=== PATIENT | female | born 1965 | race Caucasian/White ===

== ENCOUNTER 2019-01-31 11:36 | Observation (INO) | payer MEDICARE, OTHER ==
[~2019-01-31] VITALS: Ht 162.6 cm; Wt 74.1 kg
[~2019-01-31 11:36] MED LIST: DIPH25CA83 PO; GUAI600T45 PO; nicotine 21mg patch - 24 hr TD ONE
[2019-01-31] MEDS ORDERED: sucralfate 1gm/10ml UD suspension PO STA (12:07)
[2019-01-31] MEDS ORDERED: mag hydrox/Alum hydrox/simeth 30ml oral suspension PO ONE (12:10)
[2019-01-31] MEDS ORDERED: LIDOcaine Viscous 15ml cup PO ONE (12:10)
[2019-01-31 12:24] LABS: BASOPHILS % (AUTO) 0.6 % (0-1); EOSINOPHILS % (AUTO) 0.6 % (0-6); HEMATOCRIT 43.3 % (35.0-45.0); HEMOGLOBIN 15.1 g/dl (12.0-16.0); LYMPHOCYTES # (AUTO) 1.9 X10'3 (1.1-4.8); LYMPHOCYTES % (AUTO) 26.1 % (21-51); MEAN CORPUSCULAR HEMOGLOBIN 30.8 PG (27.0-31.0); MEAN CORPUSCULAR VOLUME 88.1 FL (78-98); MEAN PLATELET VOLUME 8.5 FL (7.4-10.4); MONOCYTES # (AUTO) 0.4 X10'3 (0-0.9); MONOCYTES % (AUTO) 5.8 % (2-12); NEUTROPHILS # (AUTO) 4.8 X10'3 (1.8-7.7); NEUTROPHILS % (AUTO) 66.9 % (42-75); PLATELET COUNT 234 X10'3 (140-440); RED BLOOD COUNT 4.92 X10'6 (4.20-5.60); WHITE BLOOD COUNT 7.1 X10'3 (4.5-11.0)
[2019-01-31 12:30] LABS: PARTIAL THROMBOPLASTIN TIME 26 SECONDS (22-32); PROTHROMBIN TIME 9.9 SECONDS (9.0-12.0)
[2019-01-31 12:31] LABS: ALANINE AMINOTRANSFERASE 34 U/L (12-78); ALBUMIN/GLOBULIN RATIO 1.1 (1.1-1.5); ALKALINE PHOSPHATASE 98 IU/L (46-116); ANION GAP 7 (8-16); ASPARTATE AMINO TRANSFERASE 18 U/L (10-37); BILIRUBIN,TOTAL 0.4 MG/DL (0.1-1.0); BLOOD UREA NITROGEN 10 MG/DL (7-18); BUN/CREATININE RATIO 12.2 (6.6-38.0); CALCIUM 9.2 MG/DL (8.5-10.1); CHLORIDE 103 MMOL/L (99-107); CREATININE 0.82 MG/DL (0.40-0.90); GLUCOSE 128 MG/DL (70-104); POTASSIUM 3.7 MMOL/L (3.5-5.1); SODIUM 139 MMOL/L (135-145); TOTAL PROTEIN 7.5 G/DL (6.4-8.2); eGFR 73 ML/MIN
[2019-01-31] MEDS ORDERED: nitroGLYCERIN 0.4mg SUBLingual tab SL PRN ×3 (13:20→16:30)
--- NOTE | 2019-01-31 13:44 | NUR ---
UPDATED VS AND NOTIFIED DR HERNANDEZ PT HAS NO CHEST PAIN FOLLOWING NITRO.
--- NOTE | 2019-01-31 14:50 | NUR ---
DR HERNANDEZ INFORMED PT CP WENT DOWN TO 0/10 AFTER ONE SL NTG, PT REPORTS SMALL AMOUNT OF EPGASTRIC PAIN INDIGESTION AND BURNING, DR HERNANDEZ INFORMED OF PT SMOKING NICOTINE PATCH NEEDS AND ANXIETY PT USES MARIJUANA FOR ANXIETY AND HAS HX OF BIPOLAR, DR HERANNDEZ TO SPEAK WITH PT AND ORDERS TO FOLLOW.
[2019-01-31] MEDS ORDERED: nitroGLYCERIN 1gm ointment UD TP ONE (14:55)
[2019-01-31] MEDS ORDERED: LORA-269 PO (15:05)
[2019-01-31] MEDS ORDERED: NICO-687 TOP (15:05)
--- NOTE | 2019-01-31 15:26 | NUR ---
PT CONCERNED ABOUT [facility] LIC# [id number], PT WENT TO CAR TO SECURE ITEMS IN CAR AND THE CAR ITSELF, SECURITY NOTIFIED AND STATES SHOULD BE NO PROBLEM TO PARK OVERNIGHT.
[2019-01-31] MEDS ORDERED: LORazepam 1 MG tablet PO PRN ×2 (15:55→16:30)
[2019-01-31] MEDS ORDERED: magnesium 2GM in 50ml NS 50 ML IV PRN (16:25)
[2019-01-31] MEDS ORDERED: aminophylline 250mg/10ml inj. IV PRN ×2 (16:25→16:30)
[2019-01-31] MEDS ORDERED: potassium Cl 40MEQ/NS 500ml 500 ML IV PRN ×2 (16:25)
[2019-01-31] MEDS ORDERED: acetaminophen 325mg tablet PO PRN (16:25)
[2019-01-31] MEDS ORDERED: potassium Cl 20 mEq SR tablet PO PRN ×2 (16:25)
[2019-01-31] MEDS ORDERED: magnesium 4gm in 100ml NS 100 ML IV PRN (16:25)
[2019-01-31] MEDS ORDERED: magnesium Cl slow-release 64mg tablet PO PRN (16:25)
[2019-01-31] MEDS ORDERED: morphine 4 MG/ML inj SYRINge IV PRN (16:25)
[2019-01-31] MEDS ORDERED: mag hydrox/Alum hydrox/simeth 30ml oral suspension PO PRN (16:25)
[2019-01-31] MEDS ORDERED: regadenoson 0.4mg/5ml syringe IV PRN (16:25)
[2019-01-31] MEDS ORDERED: ondansetron/PF 4mg/2ml inj IV PRN (16:25)
[2019-01-31] MEDS ORDERED: magnesium hydroxide 30ml (MOM) UD suspension PO PRN (16:25)
[2019-01-31] MEDS ORDERED: metoprolol tartrate 1mg/ml inj IV PRN ×2 (16:25→16:30)
[2019-01-31] MEDS ORDERED: regadenoson 0.4mg/5ml syringe IV ONE (16:30)
[2019-01-31] MEDS: nicotine 21mg patch - 24 hr TD ONE ×2 (16:46→16:50)
[2019-01-31] MEDS: aspirin 81mg tab.chew PO SCH (16:53)
--- NOTE | 2019-01-31 17:22 | NUR ---
LISTENED TO AND SPOKE WITH PT ABOUT NOT GETTING A ROOM UPSTAIRS UNTIL TOMORROW, PT IS VERY UPSET, TEARFUL AND ANXIOUS, PT TO CALL FRIEND TO GET A INSPECTOR MECHANICAL FOR HER PHONE AND FRIEND TO BRING CHARGING CORDS, PT SON TO BRING PT FOOD AND PAGED DR GLEZ TO REQUEST SLEEPING PILL TO HELP WITH PT SLEEP TONIGHT SHE IS VERY UPSET AND ANXIOUS. CHARGE NURSE PAUL NYE AND HAS DISCUSSED POTENTIAL FOR RN COMING IN AT MIDNIGHT AND MAY BE ABLE TO TAKE PATIENTS.
[2019-01-31] MEDS ORDERED: temazepam 15mg capsule PO PRN (17:35)
--- NOTE | 2019-01-31 17:36 | NUR ---
DR GLEZ CALLED BACK GAVE TELEPHONE ORDER RESTORIL 15 MG HS PRN SLEEP.
--- NOTE | 2019-01-31 17:49 | NUR ---
2 family members at bedside
[2019-01-31] MEDS: carVEDilol 3.125mg tablet PO SCH (20:25)
[2019-01-31] MEDS: heparin, porcine 5000 units/ml vial SQ SCH (20:31)
--- NOTE | 2019-01-31 20:45 | NUR ---
NICOTINE PATCH REMOVED IN PREPARATION FOR SLEEP.
--- NOTE | 2019-01-31 22:40 | NUR ---
RELIEVING RN FOR LUNCH, PT IS SLEEPING ON HOSPITAL BED, RESP EVEN AND UNLABORED
[2019-02-01] VITALS (9 sets, daily range): BP systolic 98–141; BP diastolic 53–76
--- NOTE | 2019-02-01 03:42 | NUR ---
PT SLEEPING, LYING ON HER RIGHT SIDE WITH BLANKETS COVERING TO HER SHOULDERS. AWAITING IPA.
--- NOTE | 2019-02-01 04:00 | NUR ---
PT AWAKENED TO TAKE VS, VS WNL. PT WITH NO NEEDS.
[2019-02-01] MEDS ORDERED: K and/or MAG REPLACEMENT MC SCH (08:00)
[2019-02-01] MEDS ORDERED: nicotine 21mg patch - 24 hr TD SCH (08:00)
[2019-02-01 08:11] LABS: BASOPHILS % (AUTO) 0.5 % (0-1); EOSINOPHILS # (AUTO) 0.1 X10'3 (0-0.9); EOSINOPHILS % (AUTO) 0.8 % (0-6); HEMATOCRIT 41.6 % (35.0-45.0); HEMOGLOBIN 14.4 g/dl (12.0-16.0); LYMPHOCYTES # (AUTO) 1.8 X10'3 (1.1-4.8); LYMPHOCYTES % (AUTO) 21.9 % (21-51); MEAN CORPUSCULAR HEMOGLOBIN 30.4 PG (27.0-31.0); MEAN CORPUSCULAR HGB CONC 34.6 g/dL (33.0-36.5); MEAN CORPUSCULAR VOLUME 87.7 FL (78-98); MEAN PLATELET VOLUME 8.2 FL (7.4-10.4); MONOCYTES # (AUTO) 0.5 X10'3 (0-0.9); MONOCYTES % (AUTO) 6.8 % (2-12); NEUTROPHILS # (AUTO) 5.6 X10'3 (1.8-7.7); PLATELET COUNT 227 X10'3 (140-440); RED BLOOD COUNT 4.74 X10'6 (4.20-5.60)
[2019-02-01] MEDS: aspirin 81mg tab.chew PO SCH (08:17)
[2019-02-01] MEDS: carVEDilol 3.125mg tablet PO SCH (08:17)
[2019-02-01] MEDS: heparin, porcine 5000 units/ml vial SQ SCH (08:20)
[2019-02-01 08:33] LABS: ALBUMIN 3.9 G/DL (3.4-5.0); ANION GAP 6 (8-16); BLOOD UREA NITROGEN 14 MG/DL (7-18); BUN/CREATININE RATIO 15.7 (6.6-38.0); CALCIUM 9.3 MG/DL (8.5-10.1); CHLORIDE 103 MMOL/L (99-107); CREATININE 0.89 MG/DL (0.40-0.90); GLUCOSE 101 MG/DL (70-104); MAGNESIUM 2.1 MG/DL (1.5-2.4); POTASSIUM 4.2 MMOL/L (3.5-5.1); SODIUM 138 MMOL/L (135-145); TOTAL CARBON DIOXIDE 29.1 MMOL/L (24-32); eGFR 67 ML/MIN
[2019-02-01] MEDS ORDERED: regadenoson 0.4mg/5ml syringe IV ONE (09:41)
[2019-02-01] MEDS ORDERED: aminophylline inj. 10 ML IV ONE (09:41)
--- NOTE | 2019-02-01 10:40 | NUR ---
My orientee and I went to dart the patient at about 1040. Mcfp to three quarters into the darting the patient tone change like she was irritated with us asking these questions and muttered under her breath "oh brother." Dr Diaz came into meet the patient. Stress test results were not up to me knowledge yet as she had shortly come back from stress test around 1020. My orientee and I left while the Dr was talking to her mainly about blood pressure and it not being "static." Patient never complained of wanting to smoke anytime I was in. She said she was hungry so I got her a sandwich and water. This was when we came into dart her. She never mentioned that she was wanting to smoke. Patient also received a nicotine patch during morning med pass. At 1130 patient was found out in the dominguez. A nurse got her back into her room and she said she wanted to go out to "smoke," and to "catch her breath because [she] had it up to here [sic]." Patient complains I told her that the bed was open all night but I never mentioned the room being empty all last night. We never got in a conversation about the status of the room and its occupancy of it. Addendum: 02/01/19 at 1329 by Mookie Antoine RN Patient also stated that she was bipolar but had stopped taking her medications because of the perceived side effects such as weight gain. This was when we were in darting the patient.
--- NOTE | 2019-02-01 12:19 | NUR ---
Refused nasal swab and skin check
--- NOTE | 2019-02-01 14:11 | NUR ---
Patient discharged IV and tele DC'd. Stable for DC per MD.
== END 2019-02-01 12:23 | disposition home or self-care (01) ==
LOC: ER 11:36 → ED HOLD 16:21 → PCU 3S 02-01 08:11
PROVIDERS: ADMIT Internal Medicine; ATTEND Internal Medicine
DX: R07.2 Precordial pain (principal); R10.13 Epigastric pain; R11.2 Nausea with vomiting, unspecified; I10 Essential (primary) hypertension; F41.9 Anxiety disorder, unspecified; F19.20 Other psychoactive substance dependence, uncomplicated; F31.9 Bipolar disorder, unspecified; F17.210 Nicotine dependence, cigarettes, uncomplicated; F12.90 Cannabis use, unspecified, uncomplicated; Z90.49 Acquired absence of other specified parts of digestive tract; Z90.710 Acquired absence of both cervix and uterus
CPT/HCPCS: 36415; 71045; 78452; 80048; 80053; 83735; 84484; 85025; 85610; 85730; 93005; 93017; 96372; 99284; A9500; G0378; J0280; J1644